=== PATIENT | female | born 1965 | race Caucasian/White ===

== ENCOUNTER → 2024-06-28 08:27 | Outpatient (REF) | payer OTHER, SELFPAY | LOC: RAD 08:27 | PROVIDERS: ATTENDING PHYSICIAN Family Medicine | DX: Z78.0 Asymptomatic menopausal state (principal) | CPT/HCPCS: 77080 ==

== ENCOUNTER 2024-12-30 06:19 | Day surgery (SDC) | payer OTHER, SELFPAY | END 2024-12-30 11:08 | disposition home or self-care (01) | LOC: GI 06:19 | PROVIDERS: ATTENDING PHYSICIAN Internal Medicine Gastroenterology; FAMILY PHYSICIAN Family Medicine | DX: Z12.11 Encounter for screening for malignant neoplasm of colon (principal); R19.5 Other fecal abnormalities; D12.2 Benign neoplasm of ascending colon; D12.4 Benign neoplasm of descending colon; D12.5 Benign neoplasm of sigmoid colon | CPT/HCPCS: 45385; 88305 ==

== ENCOUNTER → 2025-01-13 07:21 | Outpatient (REF) | payer OTHER, SELFPAY | LOC: RAD 07:21 | PROVIDERS: ATTENDING PHYSICIAN Internal Medicine Gastroenterology; FAMILY PHYSICIAN Family Medicine | DX: R74.01 Elevation of levels of liver transaminase levels (principal) | CPT/HCPCS: 76700 ==

== ENCOUNTER 2025-03-08 06:23 | Day surgery (SDC) | payer OTHER, SELFPAY ==
[2025-02-25 14:06] VITALS: BMI 24.0
[2025-03-08] VITALS (8 sets, daily range): BP systolic 143–175; BP diastolic 60–86; BMI 24.0
[2025-03-08] MEDS: TYLENOL 1000 MG PO (13:41)
[2025-03-08] MEDS: IC GREEN 2.5 MG IV (13:41)
[2025-03-08] MEDS: NORMOSOL-R/PLASMALYTE-A 1000 IV (13:42)
[2025-03-08] MEDS: HEPARIN 5000 UNITS SC (13:42)
--- NOTE | 2025-03-08 15:33 | OR.RPT ---
Operative Report
Operative Report
Primary Surgeon: Jennifer
Assisting Surgeon: Chemo RODRIGUEZ
Pre-op Diagnosis: Biliary colic
Post-op Diagnosis: Chronic cholecystitis
Procedure Performed: Robot assisted laparoscopic cholecystectomy with cholangiogram and intraoperative near infrared imaging of major extrahepatic bile ducts
Anesthesia Type: GETA
Specimen / Cultures: Gallbladder
Estimated Blood Loss: 5cc
Complications: None immediate
Operative Findings: Softly distended gallbladder, large firm stone, dense omental adhesions, cholangiogram with opacification of biliary tree, good flow into duodenum, no filling defects
DOS: 03/08/25
Indications: This 59F developed right upper quadrant/epigastric pain and on workup was found to have cholelithiasis, with elevated liver enzymes and normal sized ducts. Laparoscopic cholecystectomy with robotic assist and with cholangiogram was
elected.
Description of procedure: The patient was placed on the operating table in the supine position. General anesthesia was induced. A time-out was completed verifying correct patient, procedure, site, positioning, and special equipment prior to
beginning this procedure. An orogastric tube was placed. The abdomen was prepped and draped in the usual sterile fashion. A stab incision was made in left upper quadrant and the Veress needle was inserted. Proper position was confirmed by aspiration
and saline meniscus test. The abdomen was insufflated with carbon dioxide to a pressure of 12 mmHg. The patient tolerated insufflation well.
An 8mm optical trocar was then inserted in the left upper quadrant. The laparoscope was inserted and the abdomen inspected. No injuries from initial trocar placement or Veress needle insertion were noted. An umbilical/incisional hernia was noted
with bowel and omental contents. This was avoided. Additional 8mm trocars were then inserted in the following locations: above the umbilicus, right mid clavicular line at the level of the umbilicus and 6cm lateral to this on the right. The abdomen
was inspected and no abnormalities were found. The table was placed in the reverse Trendelenburg position with the right side up. The dome of the gallbladder was grasped with an atraumatic grasper and retracted over the dome of the liver. Dense
adhesions to the fundus from the omentum were taken down with blunt dissection and cautery. The infundibulum was grasped with an atraumatic grasper and retracted toward the right lower quadrant. This maneuver exposed Calot�s triangle. The cystic
duct and cystic artery were dissected out until the only two structures entering the gallbladder were these two structures. The cyctic duct and common duct were visualized with ICG. The common duct was was protected.
A kathleen was made in the cystic duct and a cholangiogram catheter was threaded through the abdominal wall and into the duct and secured with 2-0 silk. A cholangiogram was obtained showing good flow into duodenum, good opacification fo biliary tree
without filing defects. The catheter was withdrawn.
The cystic artery was controlled with bipolar and divided. The cystic duct was doubly clipped and divided. The gallbladder was dissected free from the liver bed. Hemostasis was assured and the gallbladder and contained stones were removed using an
endoscopic retrieval bag placed through the umbilical port. The gallbladder was passed off the table as a specimen. There was no evidence of bleeding from the gallbladder fossa or cystic artery or leakage of the bile from the cystic duct stump. The
umbilical trocar site was closed at the fascial level laparoscopically with 2-0 PDS. Secondary trocars were removed under direct vision and noted to be hemostatic. The laparoscope was withdrawn and the umbilical trocar removed. The abdomen was
allowed to collapse. The skin was closed with subcuticular sutures of 4-0 monocryl and topical skin adhesive. The orogastric tube was removed.
The patient tolerated the procedure well and was taken to the postanesthesia care unit in stable condition.
The assistance of Chemo RODRIGUEZ was required due to the complexity of the procedure. During the procedure she assisted with retraction, resection, and closure of the wound.
== END 2025-03-08 17:10 | disposition home or self-care (01) ==
LOC: SDS 06:23
PROVIDERS: ATTENDING PHYSICIAN Surgery; FAMILY PHYSICIAN Family Medicine
DX: K80.10 Calculus of gallbladder with chronic cholecystitis without obstruction (principal)
CPT/HCPCS: 47563; 74300; 76000; 88304; 93005; A4300